=== PATIENT | female | born 1995 | race Caucasian/White ===

== ENCOUNTER 2017-10-14 11:20 | Emergency (ER) | payer SELFPAY ==
[~2017-10-14] VITALS: Ht 165.1 cm; Wt 58.0 kg
[2017-10-14 11:38] VITALS: BP 125/86; PULSE 106; RESP 17; TEMP 98.1; O2SAT 97
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
== END 2017-10-14 15:01 | disposition left against medical advice (07) ==
LOC: NEPD 11:20
DX: T74.21XA Adult sexual abuse, confirmed, initial encounter (principal); Y07.9 Unspecified perpetrator of maltreatment and neglect
CPT/HCPCS: 99281